=== PATIENT | female | born 2000 | race Caucasian/White ===

== ENCOUNTER 2022-11-12 13:00 | Observation (INO) | payer BC ==
[~2022-11-12] VITALS: Ht 157.5 cm; Wt 115.2 kg
[2022-11-12] MEDS ORDERED: MORPHINE SULFATE 4 MG/ML SYR IVP PRN (14:10)
[2022-11-12] MEDS ORDERED: NACL 0.9% 1,000 ML IV SCH ×2 (14:10)
[2022-11-12 14:27] LABS: BASOPHILS % (AUTO) 0.3 % (0.0-2.0); EOSINOPHILS # (AUTO) 0.1 K/uL (0-0.4); EOSINOPHILS % (AUTO) 1.2 % (0.0-4.0); HEMATOCRIT 36.9 % (36-48); HEMOGLOBIN 12.4 g/dL (12.0-16.0); LYMPHOCYTES # (AUTO) 2.2 K/uL (2.5-16.5); LYMPHOCYTES % (AUTO) 20.1 % (20.5-51.1); MEAN CORPUSCULAR HEMOGLOBIN 28 pg (27-31); MEAN CORPUSCULAR HGB CONC 34 g/dL (33-37); MEAN CORPUSCULAR VOLUME 82.5 fL (80-94); MONOCYTES # (AUTO) 0.4 K/uL (0.8-1.0); MONOCYTES % (AUTO) 3.7 % (1.7-9.3); NEUTROPHILS # (AUTO) 8.3 K/uL (1.8-7.7); NEUTROPHILS % (AUTO) 74.7 % (42.2-75.2); PLATELET COUNT (AUTO) 256 K/uL (140-450); RED BLOOD CELL COUNT(AUTO) 4.48 MIL/uL (4.20-5.40); RED CELL DISTRIBUTION WIDTH 15.5 % (11.6-13.7); WHITE BLOOD COUNT (AUTO) 11.1 K/uL (4.8-10.8)
[2022-11-12 14:52] LABS: BILIRUBIN,URINE NEGATIVE (NEGATIVE); BLOOD, URINE NEGATIVE (NEGATIVE); COLOR,URINE YELLOW (YELLOW); LEUKOCYTE ESTERASE ,URINE TRACE (NEGATIVE); NITRITE, URINE NEGATIVE (NEGATIVE); UGLUCOSE NEGATIVE (NEGATIVE)
[2022-11-12 15:03] LABS: APPEARANCE,URINE HAZY (CLEAR)
[2022-11-12 15:14] LABS: ALBUMIN 2.7 g/dL (3.4-5.0); ANION GAP 12.2 (8-16); CARBON DIOXIDE 23.4 mmol/L (21-32); CREATININE 0.6 mg/dL (0.6-1.3); POTASSIUM 3.6 mmol/L (3.5-5.1); TOTAL BILIRUBIN 0.4 mg/dL (0.0-1.0)
[2022-11-12] MEDS ORDERED: PNV91TAB10 PO (15:16)
[2022-11-12 15:34] LABS: RBC,URINE NONE SEEN /HPF (0-5)
[2022-11-12] MEDS ORDERED: ONDANSETRON 4 MG/2 ML VIAL IVP PRN (17:40)
[2022-11-12] MEDS ORDERED: ONDANSETRON 4 MG/2 ML VIAL ONE (17:45)
== END 2022-11-12 19:45 | disposition home or self-care (01) ==
LOC: MLD 13:00
PROVIDERS: ADMIT Obstetrics & Gynecology; ATTEND Obstetrics & Gynecology
DX: O26.892 Other specified pregnancy related conditions, second trimester (principal); R10.9 Unspecified abdominal pain; Z20.822 Contact with and (suspected) exposure to COVID-19; O99.612 Diseases of the digestive system complicating pregnancy, second trimester; K92.0 Hematemesis; Z3A.23 23 weeks gestation of pregnancy
CPT/HCPCS: 36415; 76805; 80053; 81001; 85025; 87086; 87426; 96361; 96365; 96375; G0378; J0696; J2270; J2405; J7060; Q0092